=== PATIENT | female | born 1955 | race Caucasian/White ===

== ENCOUNTER → 2017-06-04 | Outpatient (CLI) | payer MEDICARE | END | disposition home or self-care (01) | LOC: GMAB 10:52 | PROVIDERS: ATTEND Family Medicine | DX: I10 Essential (primary) hypertension (principal) ==

== ENCOUNTER 2017-09-29 12:00 | Inpatient (IN) | payer MEDICARE ==
--- NOTE | 2017-09-29 12:11 | HP ---
SUPERVISING PHYSICIAN: Damien Rivera MD CHIEF COMPLAINT: Worsening shortness of breath, cough. HISTORY OF PRESENT ILLNESS: Ms. Perez is a 62-year-old, female patient of Dr. Hess's with a history of hypertension, multiple sclerosis and tobacco abuse of a pack a day with chronic obstructive pulmonary disease. She had been seen in the clinic last week and treated for an upper respiratory infection and started on a Z-Adryan. She notes that her symptoms have worsened over the last 5 days. Her cough has become more productive and has become purulent. She is short of breath at rest and actually in the clinic today, she was showing SPO2 of 83% on room air. On exam, Dr. Hess noticed that the patient was significantly worse clinically and then initial treatment course with expiratory and inspiratory wheezing, desaturations. Influenza test was completed in the clinic which was negative for both A and B. Chest x-ray, single view, per radiologic interpretation showed no significant areas of infiltrate or consolidation. The patient was given a breathing treatment in the clinic with minimal improvement in her respiratory effort and saturations again showing 83% on room air. Dr. Hess requested the patient be admitted having failed to respond to outpatient treatment plan in regards to the upper respiratory infection and initiated on further treatment and evaluation for concerns for worsening exacerbation of chronic obstructive pulmonary disease and possible early pneumonia. The patient was admitted in stable condition directly from Dr. Hess's office. PAST MEDICAL HISTORY: 1. Hypertension. 2. Multiple sclerosis. 3. Chronic obstructive pulmonary disease in a chronic smoker. 4. Tobacco abuse, nicotine addiction. PAST SURGICAL HISTORY: No surgeries listed. CURRENT MEDICATIONS: 1. Lisinopril/hydrochlorothiazide 20-25 mg 1 daily. 2. Gabapentin 300 mg b.i.d. 3. Paxil 20 mg daily. 4. Metoprolol succinate ER 50 mg daily. 5. Ritalin 20 mg t.i.d. 6. Potassium chloride 10 mEq b.i.d. 7. Ocrevus 300 mg per injection 1 infusion every 6 months. ALLERGIES: NO KNOWN DRUG ALLERGIES. FAMILY HISTORY: Noncontributory. SOCIAL HISTORY: The patient is retired and disabled secondary to multiple sclerosis. She lives with her in [place]. She is a current smoker approximately 1 pack a day. She denies any alcohol or illicit drug use. REVIEW OF SYSTEMS: CONSTITUTIONAL: Positive for subjective fever, but negative for chills, fatigue or unintentional weight loss. HEENT: Denies nasal congestion, sore throats, earaches. RESPIRATORY: Positive for worsening cough with purulent sputum and increasing weakness and shortness of breath. CARDIOVASCULAR: Denies chest pain or palpitations. Denies syncopal episodes. GASTROINTESTINAL: Denies nausea or vomiting, diarrhea, constipation or bowel habit changes. GENITOURINARY: The patient is incontinent and unable to control her bladder as well as sense she needs to go to the bathroom secondary to underlying multiple sclerosis. MUSCULOSKELETAL: History of multiple sclerosis. Wheelchair bound with paraplegia secondary to complications from multiple sclerosis. INTEGUMENTARY: Denies rashes, sores or abrasions. NEUROLOGIC: No noted headaches, vision changes, syncopal episodes or other neurological disturbances. PHYSICAL EXAMINATION: VITAL SIGNS: Temperature 98.6. Pulse 76. Blood pressure 116/75. Initial saturation 84% on room air, improving to 92% with nasal cannula at 2 liters at rest. Admission weight 65.5 kg. GENERAL: The patient is well-developed, well-nourished, no apparent distress. The patient is alert. HEENT: Tympanic membranes clear bilaterally. Oropharynx is pink, moist without any lesions. NECK: Supple, nontender with full range of motion. No jugular venous distention noted. CHEST: Lungs notable for rales towards bilateral bases with some rhonchi heard throughout with a diffuse expiratory wheeze. CARDIOVASCULAR: Regular rate and rhythm without any appreciable murmurs, gallops, or rubs. ABDOMEN: Soft, nontender. Positive bowel sounds. EXTREMITIES: Wheelchair bound with muscle wasting of the lower extremities. NEUROLOGIC: The patient is alert and oriented times three. Cranial nerves II- XII are grossly intact. Facial features are symmetrical. Extraocular movements are within normal limits. There is no nystagmus noted. Bilateral extremities show equal strength. Lower extremities are bilaterally flaccid secondary to multiple sclerosis. LABORATORY: Initial white count 8,300. She does have a left shift with hemoglobin 14.1, hematocrit 40.8, platelet count 215,000. Chemotherapy does show mildly low potassium of 3.1, carbon dioxide elevated at 32 with normal anion gap at 13, BUN 19, creatinine 1.02. Glucose 104, lactic acid 0.7. Total bilirubin slightly elevated at 1.4, calcium 9.6. Liver functions within normal limits. Urinalysis showed a small amount of blood, positive nitrites with 4 urobilinogen, small amount of leukocyte esterase. Microscopic showed 1 to 3 RBCs, 10 to 20 WBCs, 1 to 3 epithelial with 2+ amorphus material and 4+ bacteria , trace mucus from catheterized specimen. MICROBIOLOGY: Urine culture pending. Sputum culture pending. Blood cultures pending. Influenza A swab completed prior to admission from the clinic was negative for both A and B. RADIOLOGY: Single view chest performed at [facility] prior to admission reviewed per radiologic interpretation showed lungs clear. ASSESSMENT: 1. Acute exacerbation of chronic obstructive pulmonary disease having failed to respond to outpatient treatment with worsening acute bronchitis with concerns for developing bilateral pneumonia with the patient showing a low O2 saturation on room air requiring O2 supplementation along with hypercapnia. 2. Urinary tract infection with cultures pending. 3. Electrolyte imbalance with a mid hypokalemia requiring replacement. 4. Mild dehydration requiring initiation of IV fluids secondary to underlying bronchitis and possible pneumonia. 5. Chronic tobacco abuse in a patient with significant chronic obstructive pulmonary disease. 6. Hypertension. 7. Multiple sclerosis, followed by Dr. Rodriguez. PLAN: The patient will be directly admitted to the Medical/Surgical Floor from Dr. Hess's office for initiation of empiric antibiotic therapy to include Levaquin as she has failed to respond to outpatient management with a Z-Adryan. She will be on aggressive pulmonary hygiene with chest percussion therapy. We will start her on DuoNeb treatments q.i.d. and p.r.n. albuterol treatments as needed. She is not showing any distress and at this point requests that she not have any steroids, however, I did discuss with her that should she continue to show any significant wheezing, certainly we will need to address with some Solu-Medrol possibly, but at this point she is not in any significant distress and with no prominent wheezing, therefore, we will hold off on any steroids at the moment. We will await a sputum culture. In regards to the urinary tract infection, she is on Levaquin and we will await that culture to further target antibiotic therapy as appropriate. We will anticipate her length of stay to be 2 to 3 days until clinically stable. We will continue to monitor and treat appropriately. We will plan to repeat labs in the morning as well as chest x- ray. Once clinically stable and able to be discharged, she will need close clinical followup with her primary care provider, Dr. Hess. #[id number] [facility]
[2017-09-29] MEDS ORDERED: ACETAMINOPHEN 325 MG TAB PO PRN (12:26)
[2017-09-29] MEDS ORDERED: ALBUTEROL SULFATE 2.5 MG/3 ML VIAL NEB PRN (12:26)
[2017-09-29] MEDS ORDERED: SODIUM CHLORIDE 0.9% (FLUSH) 10 ML SYG IV PRN (12:26)
[2017-09-29] MEDS ORDERED: IV SET AND CAP CHANGE INJ INJ SCH (12:30)
[2017-09-29] MEDS: IPRATROPIUM/ALBUTEROL 3 ML VIAL INH SCH ×3 (14:40→20:11)
[2017-09-29] MEDS: levoFLOXacin 750MG IV 750 MG in PREMIX BAG 1 BAG IVPB SCH (15:08)
[2017-09-29] MEDS: KCL 20MEQ/0.45% NS 1,000 ML IVS PRN (16:43)
[2017-09-29] MEDS: SODIUM CHLORIDE 0.9% (FLUSH) 10 ML SYG IV SCH (21:00)
--- NOTE | 2017-09-29 21:35 | PCM.CORE ---
Physician DVT/VTE - Nurse DVT Assessment & Total Each Risk Factor Represents 2 Points: Age 60-74, Confined to bed >72 hours Each Risk Factor Represents 1 Point: Hx of smoking past year Each Risk Factor is 1 Point: Obesity (BMI >25), Serious Lung disease (pnemonia < 1month, COPD, emphysema,etc) DVT Assessment Score: 7 - 5 or more Very High Risk Treatments: Sequential Compression Device Pharmacological: Enoxaparin 40mg SQ Daily
[2017-09-29] MEDS ORDERED: NON-FORMULARY MEDICATION 1 EA MIS (Potassium Chloride [Potassium Chloride Er] 10 MEQ) PO SCH (21:45)
[2017-09-29] MEDS: GABAPENTIN 300 MG CAP PO SCH (21:58)
[2017-09-29] MEDS ORDERED: ENOXAPARIN SODIUM 40 MG/0.4 ML SYG SUBCU SCH (22:00)
[2017-09-29] MEDS: METHYLPHENIDATE HCL 20 MG PO SCH (22:18)
[2017-09-30] MEDS: KCL 20MEQ/0.45% NS 1,000 ML IVS PRN ×2 (05:17→19:30)
[2017-09-30] MEDS ORDERED: PANTOPRAZOLE SODIUM IV 40 MG VIAL IV SCH (06:30)
[2017-09-30] MEDS: IPRATROPIUM/ALBUTEROL 3 ML VIAL INH SCH ×4 (08:50→21:21)
[2017-09-30] MEDS ORDERED: METOPROLOL SUCCINATE XL 50 MG TAB PO SCH ×2 (09:00→21:00)
[2017-09-30] MEDS ORDERED: POTASSIUM CHLORIDE 10 MEQ TAB PO SCH (09:00)
[2017-09-30] MEDS ORDERED: hydroCHLOROthiazide 25 MG TAB PO SCH (09:00)
[2017-09-30] MEDS ORDERED: NON-FORMULARY MEDICATION 1 EA MIS (Lisinopril & Hydrochlorothiazi [Lisinopril/Hctz 20-25 M PO SCH (09:00)
[2017-09-30] MEDS: LISINOPRIL 10 MG TAB PO SCH (09:54)
[2017-09-30] MEDS: GABAPENTIN 300 MG CAP PO SCH ×2 (09:54→20:36)
--- NOTE | 2017-09-30 09:58 | RAD ---
EXAM DESCRIPTION: Chest,1 View CLINICAL HISTORY: 62 years Female, Pneumonia COMPARISON: None. IMPRESSION: The heart is enlarged, without failure. The thoracic aorta is tortuous and contains moderate calcific plaque. The lungs are hyperexpanded. Retrocardiac left basilar opacity which may represent atelectasis or pneumonia. Short interval follow-up to confirm resolution recommended. No large pleural effusion or pneumothorax. No acute osseous abnormality. Electronically signed by: Jeremy Farooq MD 09/30/2017 9:56 AM TELEVISION ENGINEER
[2017-09-30] MEDS: POTASSIUM CHLORIDE 10 MEQ TAB PO SCH ×2 (10:09→17:32)
[2017-09-30] MEDS: SODIUM CHLORIDE 0.9% (FLUSH) 10 ML SYG IV SCH ×2 (10:13→20:37)
[2017-09-30] MEDS: METHYLPHENIDATE HCL 20 MG PO SCH ×3 (10:25→20:37)
[2017-09-30] MEDS ORDERED: predniSONE 20 MG TAB PO ONE (11:52)
--- NOTE | 2017-09-30 13:18 | PN ---
DATE: 09/30/17 SUBJECTIVE: The patient is lying in the bed with head elevated. She states she is still having some moderate dyspnea on minimal exertion like turning around in the bed. She is coughing up some sputum and this will be sent to the lab for the sputum collection culture as well as gram stain. Appetite is fairly good. She has advanced multiple sclerosis which has resulted in significant loss of function of her lower extremities with her upper extremities working to a degree of function. OBJECTIVE: VITAL SIGNS: Afebrile. Pulse 77. Blood pressure 110/76. Pulse oximetry still only 90% on 3 liters, suggesting a fairly significant level of hypoxia. We will have respiratory therapy assist with determining the amount of oxygen that she will require after her discharge home. LUNGS: Some rhonchi which somewhat clears with clearing of sputum through coughing. HEART: Tones are somewhat distant, yet regular. ABDOMEN: Soft, no tenderness. EXTREMITIES: Lower extremities have diminished muscle tone, no significant edema. LABORATORY: Potassium 3.1. White count 6,900, hemoglobin 12.8. Urine culture showing gram negative danette, greater than 100,000 colony count with final results pending, hopefully by tomorrow. The patient currently is on a fluoroquinolone. Chest x-ray performed this morning reveals chronic obstructive pulmonary disease on the lung with a retrocardiac left basilar opacity suggesting atelectasis or pneumonia with followup suggested. ASSESSMENT: 1. Chronic obstructive pulmonary disease with an acute exacerbation having failed outpatient therapy, requiring pulmonary hygiene with bronchodilation as well as initiation of anti-inflammatory treatment. 2. Left lower lobe pneumonia with associated acute bronchitis, being treated with fluoroquinolones with followup suggested. 3. Hypoxia, requiring oxygen with her previously not being on oxygen at home. 4. Urinary tract infection with cultures pending, currently under treatment with fluoroquinolone. 5. Hypokalemia, persistent with supplementation to continue. 6. Mild dehydration with IV supplementation to continue. 7. Chronic tobacco abuse, having stopped about 2 weeks ago and encouraged to stay stopped. 8. History of hypertension. 9. History of multiple sclerosis with significant lower extremity disability precluding her ability to walk, being followed closely in neuro clinic by Dr. Rodriguez. PLAN: The patient will be continued on Levaquin having failed to respond to outpatient management with a Z-Adryan. Prednisone is added as well as some inhaled Decadron medication to assist with alveolar function. Respiratory therapy to assist in evaluating the need for oxygen and if she needs it at home , we will be able to acquire it before she is able to be discharged. Await urine culture in the morning. Sputum culture is now pending. Close followup necessary. [id number]
[2017-09-30] MEDS: levoFLOXacin 750MG IV 750 MG in PREMIX BAG 1 BAG IVPB SCH (15:10)
[2017-09-30] MEDS: DEXAMETHASONE INJ 2 MG, SODIUM CHLORIDE 0.9% NEB 3 ML NEB SCH ×4 (18:04→21:21)
[2017-09-30] MEDS ORDERED: SODIUM CHLORIDE 0.9% NEB 3 ML VIAL ONE (19:57)
[2017-09-30] MEDS ORDERED: DEXAMETHASONE INJ 4 MG/ML VIAL ONE (19:57)
[2017-09-30] MEDS ORDERED: PANTOPRAZOLE SODIUM TAB 40 MG PO ONE (20:06)
[2017-09-30] MEDS ORDERED: ENOXAPARIN SODIUM 40 MG/0.4 ML SYG SUBCU SCH (21:00)
[2017-09-30] MEDS ORDERED: PARoxetine HCL 20 MG TAB PO SCH (21:00)
[2017-10-01] MEDS ORDERED: PANTOPRAZOLE SODIUM TAB 40 MG PO SCH (06:30)
[2017-10-01] MEDS ORDERED: DEXAMETHASONE INJ 4 MG/ML VIAL ONE (07:53)
[2017-10-01] MEDS ORDERED: SODIUM CHLORIDE 0.9% NEB 3 ML VIAL ONE (07:53)
[2017-10-01] MEDS: IPRATROPIUM/ALBUTEROL 3 ML VIAL INH SCH ×2 (07:57→13:05)
[2017-10-01] MEDS: DEXAMETHASONE INJ 2 MG, SODIUM CHLORIDE 0.9% NEB 3 ML NEB SCH ×2 (08:00)
[2017-10-01] MEDS: KCL 20MEQ/0.45% NS 1,000 ML IVS PRN (08:32)
[2017-10-01] MEDS: POTASSIUM CHLORIDE 10 MEQ TAB PO SCH (08:32)
[2017-10-01] MEDS ORDERED: predniSONE 10 MG TAB PO SCH (09:00)
[2017-10-01] MEDS: METHYLPHENIDATE HCL 20 MG PO SCH ×2 (09:25→13:21)
[2017-10-01] MEDS: SODIUM CHLORIDE 0.9% (FLUSH) 10 ML SYG IV SCH (09:26)
[2017-10-01] MEDS: LISINOPRIL 10 MG TAB PO SCH (09:27)
[2017-10-01] MEDS: GABAPENTIN 300 MG CAP PO SCH (09:27)
[2017-10-01] MEDS: levoFLOXacin 750MG IV 750 MG in PREMIX BAG 1 BAG IVPB SCH (13:21)
--- NOTE | 2017-10-01 13:21 | DS ---
DISCHARGE DIAGNOSIS: 1. Chronic obstructive pulmonary disease with an acute exacerbation having failed outpatient therapy, requiring pulmonary hygiene with bronchodilation as well as short course of anti-inflammatory therapy. 2. Left lower lobe pneumonia with associated acute bronchitis, treated with fluoroquinolones with followup in clinic necessary. 3. Documented hypoxia, with pulse oximetry 87% on room air on the day of discharge, requiring portable as well as oxygen concentrator for use at home to be arranged. 4. Urinary tract infection with culture positive Klebsiella pneumoniae with treatment based upon sensitivities on Levaquin to be continued for an additional 5 days. 5. Hypokalemia, supplementation to continue and decision to hold on hydrochlorothiazide for a while and observe her blood pressure response. 6. Mild dehydration with IV supplementation to continue. 7. Chronic tobacco abuse, having stopped "2 weeks ago" and encouraged to stay stopped. 8. History of hypertension with followup suggested. 9. History of multiple sclerosis with significant lower extremity disability preventing her from walking and being able to get around the house without the significant help of her . She is followed closely in neuro clinic by Dr. Rodriguez. HISTORY OF PRESENT ILLNESS: This 62-year-old, white female was admitted to the hospital after having failed outpatient therapy for shortness of breath, upper respiratory infection, cough, symptoms worsening over the last 5 days. She is increasingly short of breath and shows a pulse oximetry of only 83% on room air. The patient had been started on therapy with azithromycin and Dr. Hess found her to be significantly worse clinically. Influenza A/B test was negative. Chest x-ray did reveal an infiltrate in the left base. The patient was admitted to the hospital for definitive pulmonary hygiene and bronchodilator therapy and to begin treatment to prevent it from worsening. LABORATORY: White count 6,300, hemoglobin stabilized at about 12.5. Chemistries showed initial potassium 3.1, up to 4 with supplementation. CO2 persisted in being elevated at 32. BUN improved to 13 from 19. Glucose 108. Bilirubin 1.4, albumin 3. Urinalysis positive nitrites with pyuria and bacteruria. Urine culture revealed Klebsiella pneumoniae, sensitive to the fluoroquinolones which she has been started on. Sputum culture showed normal vijay. Blood cultures were negative. RADIOLOGY: Chest x-ray does reveal an apparent retrocardiac left basilar infiltrate suggesting a pneumonia and followup necessary. HOSPITAL COURSE: The patient was feeling much improved on the morning of discharge and very much wishes to continue with outpatient management in the clinic. PLAN: The patient will be scheduled to see Dr. Hess in the clinic in the next week. Because of documented hypoxia on room air, the patient will be started on oxygen concentrated therapy at home as well as portable oxygen cylinders when mobile. She is to start off at 1 liter and to adjust to maintain pulse oximetry 91% to 93% only. Try to acquire a pulse oximetry monitor at [facility] or other suitable place for home use. See home medications which now include a short course of levofloxacin, prednisone for 12 days and albuterol medication nebulizers with a compressor to be sent home. She is to stay active. Breathing deeply. Return if not improving. Close followup on her multiple sclerosis is important to help maintain adequate respiratory function and general health. Observe closely. [facility][id number] [facility]
[2017-10-01 14:32] VITALS: BP 122/69; TEMP 96; O2SAT 89
== END 2017-10-01 15:55 | disposition home or self-care (01) | DRG 190 ==
LOC: MS 12:00
PROVIDERS: ADMIT Nurse Practitioner Family; ATTEND Emergency Medicine
DX: J44.1 Chronic obstructive pulmonary disease with (acute) exacerbation (principal); J18.9 Pneumonia, unspecified organism; N39.0 Urinary tract infection, site not specified; J20.9 Acute bronchitis, unspecified; J44.0 Chronic obstructive pulmonary disease with (acute) lower respiratory infection; I10 Essential (primary) hypertension; F17.210 Nicotine dependence, cigarettes, uncomplicated; G35 Multiple sclerosis; E87.6 Hypokalemia; E86.0 Dehydration; B96.1 Klebsiella pneumoniae [K. pneumoniae] as the cause of diseases classified elsewhere

== ENCOUNTER → 2018-07-27 | Outpatient (CLI) | payer MEDICARE | LOC: YCHH 08:42 | PROVIDERS: ATTEND Family Medicine | DX: G35 Multiple sclerosis (principal); I10 Essential (primary) hypertension; D64.9 Anemia, unspecified; E03.9 Hypothyroidism, unspecified ==

== ENCOUNTER → 2018-09-10 | Outpatient (CLI) | payer MEDICARE | LOC: YCHH 13:56 | PROVIDERS: ATTEND Psychiatry & Neurology Neurology | DX: G35 Multiple sclerosis (principal); Z79.899 Other long term (current) drug therapy ==

== ENCOUNTER → 2018-09-25 | Outpatient (CLI) | payer MEDICARE ==
--- NOTE | 2018-09-25 13:38 | MRI ---
EXAM DESCRIPTION: Brain w/wo Contrast: Magnetic Resonance Imaging. CLINICAL HISTORY: 63 years Female MULTIPLE SCLEROSIS. Patient and spouse say no improvement, but not declining as rapidly as before. COMPARISON: MRI scan of the brain without and with gadolinium IV contrast 02/13/2016. TECHNIQUE: Multiplanar, high-field MRI, multiple conventional sequences, without and with gadolinium IV contrast. No adverse reactions. Multiple axial diffusion sequences. FINDINGS: Bilateral multifocal symmetric hyperintense FLAIR and T2-weighted signal in the periventricular white matter , more than in the da silva-white matter junctions of the cerebral hemispheres. . A spherical lesion in the supraventricular left anterior parietal lobe is slightly enlarged on FLAIR axial 401, image 18 since the prior study. This lesion shows minimal diffusion restriction, similar to the prior study. A lesion in the centrum semiovale abutting the upper left frontal aspect of the lateral ventricle is slightly enlarged on FLAIR axial 401, image 17 since the prior study. Lesions abutting the occipital horn of the right lateral ventricle are less intense but more diffuse, on FLAIR axial images 12-16 since the prior study. Other lesions bilaterally are stable. These lesions are not associated with abnormal contrast enhancement, hemorrhage, or diffusion restriction normal signal in the bilateral Basal ganglia unremarkable. No hemorrhage, no cerebral edema, no mass-effect. Normal contrast enhancement. Normal signal in the brainstem and cerebellar hemispheres. No hemorrhage, no cerebral edema, no mass-effect. Normal contrast enhancement. Concordance of the diffusion and non-diffusion sequences with no evidence of acute or subacute infarction. Cortical sulci, ventricles, and other CSF spaces, and the subdural spaces are normally configured for patients age. No effacement or displacement. No midline shift. No extra-axial hemorrhage. Normal contrast enhancement. Normal flow signal void in the major vessels of the [place], and the venous sinuses. IACs are symmetric bilaterally. Normal signal in the bilateral mastoid air cells. No mass effect in the bilateral Cerebellopontine angles. Normal contrast enhancement. Pituitary gland occupies only the base of the sella. Normal contrast enhancement. Stable. Base of the cerebellar tonsils is above the foramen magnum. Normal enhancement of the optic nerve, but enhancement of the extraocular muscles again noted. No significant disease in the bilateral paranasal sinuses. The bony calvarium is intact. IMPRESSION: 1. Slight progression in size of some lesions in the left frontal and parietal lobes since the prior study. No contrast enhancement, hemorrhage. No new lesions are seen bilaterally. Small lesion in the supraventricular left anterior parietal lobe continues to show minimal diffusion restriction. No new regions of diffusion restriction, abnormal contrast enhancement, hemorrhage, or mass effect. Electronically signed by: Zion Clark MD 09/25/2018 1:37 PM [facility]
== END ==
LOC: MRI 09:00
PROVIDERS: ATTEND Psychiatry & Neurology Neurology
DX: G35 Multiple sclerosis (principal)

== ENCOUNTER 2019-09-14 11:38 | Emergency (ER) | payer MEDICARE ==
[2019-09-14] MEDS ORDERED: SODIUM CHLORIDE 0.9% (FLUSH) 10 ML SYG IV PRN (11:51)
[2019-09-14 12:12] VITALS: TEMP 97
--- NOTE | 2019-09-14 12:17 | CT ---
EXAM DESCRIPTION: Head CLINICAL HISTORY: right sided facial drooping COMPARISON: MRI brain September 25, 2018 TECHNIQUE: Noncontrast transaxial CT images of the head are obtained from base to vertex. This exam was performed according to our departmental dose-optimization program, which includes automated exposure control, adjustment of the mA and/or kV according to patient size and/or use of iterative reconstruction technique. FINDINGS: The midline structures are not displaced. Sulci are age-appropriate. There are areas of decreased attenuation in the periventricular white matter and the white matter of the centrum semiovale. A 4.2 cm area of decreased attenuation extending from the periventricular white matter to cortical surface with loss of normal da silva-white differentiation is seen in the left parietal lobe region. No mass effect on the lateral ventricle. No abnormal extra axial fluid collection is seen. Linear focus of increased attenuation measuring 11 mm in the location of the left M1 segment of the temporal lobe is seen. Bone windows show no evidence of depressed skull fracture. The visualized paranasal sinuses are unremarkable. IMPRESSION: 1. Age-appropriate atrophy with evidence of old small vessel ischemic type changes seen. 2. Abnormality in left parietal region suggests subacute area of ischemia in the left MCA distribution. Consider further evaluation with MRI imaging. 3. Hyperdense left MCA is seen raising suspicion for thrombosis or occlusion of the M1 segment of the left MCA. Electronically signed by: Ousmane Ortega MD 09/14/2019 12:15 PM [facility]
--- NOTE | 2019-09-14 12:18 | RAD ---
EXAM DESCRIPTION: Chest,1 View CLINICAL HISTORY: right sided facial drooping COMPARISON: None. IMPRESSION: Single AP portable upright view of the chest shows enlargement of the cardiac silhouette without pulmonary vascular congestion. Mild calcifications of the thoracic aorta are seen.. Lungs are normally aerated and clear. No obvious pleural effusion or pneumothorax is seen. Electronically signed by: Ousmane Otrega MD 09/14/2019 12:17 PM [facility]
[2019-09-14] MEDS ORDERED: ALTEPLASE 50 MG IVS ONE (12:31)
[2019-09-14] MEDS ORDERED: hydrALAZINE HCl 20 MG/ML VIAL ONE (12:44)
[2019-09-14] MEDS ORDERED: NITROPRUSSIDE SODIUM 25 MG/ML VIAL IVPB ONE (12:57)
[2019-09-14] MEDS ORDERED: DEXTROSE 5% 250ML 250 ML ONE (12:59)
[2019-09-14] MEDS ORDERED: hydrALAZINE HCl 20 MG/ML VIAL IV ONE ×2 (13:02→13:03)
--- NOTE | 2019-09-14 13:06 | ED.PDOC ---
History of Present Illness - General Chief Complaint: Neuro Symptoms/Deficits Stated Complaint: right sided facial drooping Time Seen by Provider: 09/14/19 12:12 Source: RN notes reviewed, Vital Signs reviewed, EMS notes reviewed, family - , daughter and son-in-law. Exam Limitations: clinical condition - Patient has an expressive and receptive aphasia. - History of Present Illness Initial Comments: Patient is a 64-year-old white female who presents from home with acute onset of weakness and decreased level of consciousness. Per the , this started at 9:30 in the morning. Patient normally can talk and is interactive and can use her upper extremities with mild difficulty. Patient has a history of MS and her lower extremities are exceptionally weak. At approximately 930 patient became unresponsive and became globally limp with a right facial droop. Patient is minimally responsive here which makes obtaining a solid and complete HPI and review of systems difficult. Of note patient has a forced gaze preference to the left. Severity: severe Improving Factors: nothing Worsening Factors: nothing Associated Symptoms: confusion, weakness Allergies/Adverse Reactions: Allergies No Known Drug Allergy Allergy (Verified 09/29/17 13:53) Home Medications: Ambulatory Orders Gabapentin 1,600 mg PO BID 09/29/17 Paroxetine HCl [Paxil] 20 mg PO BEDTIME 09/29/17 Albuterol Sulfate Nebs [Proventil Nebs] 2.5 mg INH TID #100 vial 10/01/17 Amlodipine Besylate 5 mg PO DAILY 09/14/19 Lisinopril & Hydrochlorothiazi [Lisinopril/Hydrochlorothi 20-25 mg] 1 tab PO DAILY 09/14/19 Methylphenidate HCl [Ritalin] 60 mg PO DAILY 09/14/19 Nebivolol HCl [Bystolic] 20 mg PO DAILY 09/14/19 Potassium Chloride [Potassium Chloride ER] 10 meq PO BID 09/14/19 Review of Systems - Review of Systems Constitutional: States: see HPI, weakness EENTM: States: see HPI Respiratory: States: see HPI Cardiology: States: see HPI Gastrointestinal/Abdominal: States: see HPI Genitourinary: States: see HPI Musculoskeletal: States: see HPI Skin: States: see HPI Neurological: States: see HPI, numbness, paresthesia, weakness, other - Expressive and receptive aphasia. Endocrine: States: see HPI Unable to Obtain Due To: clinical condition Past Medical History (General) - Patient Medical History Hx Seizures: No Hx Stroke: No Hx Asthma: No Hx of COPD: Yes Hx Congestive Heart Failure: No Hx Pacemaker: No Hx Hypertension: Yes Hx Diabetes: No Hx MRSA: No - Vaccination History Hx Influenza Vaccination: - unknown Hx Pneumococcal Vaccination: - unknown - Social History Hx Tobacco Use: Yes Hx Alcohol Use: No Hx Substance Use: No Hx Physical Abuse: No Hx Emotional Abuse: No Family Medical History - Family History Mother Living Status: Hx Family Asthma: No Hx Family Congestive Heart Failure: Yes Hx Family Hypertension: No Hx Family Stroke: No Hx Cardiac Disease: Yes Hx Family Diabetes: No Hx Family Cancer: No Hx Family;Other: Passed from Sepsis Physical Exam - Physical Exam General Appearance: Obvious distress, Well Developed, Well Groomed, Well Hydrated Eye Exam: bilateral abnormal EOM ENT Exam: normal ENT inspection, hearing grossly normal, other - Patient with a forced left gaze preference that is unable to be overcome. Patient with right facial droop. Neck: non-tender, trachea midline, other Respiratory: chest non-tender, lungs clear, normal breath sounds, no respiratory distress Cardiovascular/Chest: normal peripheral pulses, no edema, no gallop, no JVD, no murmur, bradycardia - Bradycardic into the low 40s. Patient is not on a beta- marcellus. Peripheral Pulses: radial,right: 2+, radial,left: 2+ Gastrointestinal/Abdominal: normal bowel sounds, non tender, soft Back Exam: no vertebral tenderness Extremities Exam: non-tender, other - Patient with dense right-sided hemiparesis. Lower extremities show no movement by the patient. Per the she has no sensation in her lower extremity secondary to MS. 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 Motor/Sensory: weak motor strength RUE, weak motor strength RLE, weak motor strength LLE Skin Exam: normal color, warm/dry Progress - Progress Progress: Differential diagnosis: CVA, TIA, medication reaction, overdose of medication among others. 09/14/19 13:11 Patient is densely hemiparetic with a left gaze preference and what appears to be neglect of her right side. I have discussed this patient with the on-call neurologist at [facility], Dr. Moyer, and she recommends transfer to a comprehensive stroke center and starting TPA. I have discussed transfer with Dr. Velásquez at [facility] in [place], there is stroke neurologist, and he agrees with my assessment and plan for TPA and recommends immediate transfer. Patient with elevated blood pressure with a systolic of 188. I have given hydralazine 20 mg IV and patient's blood pressure has come down to a systolic of 167. Patient is grossly bradycardic at 44 bpm. She is not on any beta-blockers as this may be secondary to her stroke. TPA was started appro ximately 3 and half hours after symptom onset. Drip has been initiated. Plan also to have patient on a nitroprusside drip to control blood pressure. Plan to fly patient to the [facility] stroke [facility] in [place]. I have discussed the risks and benefits of this treatment with the patient's family, her and her children as well as their spouses and they voiced understanding and agre ement with the plan of care. Sanchez Cherry M.D. #[id number] - Results/Orders Results/Orders: 09/14/19 11:51 IV Care:Saline Lock per Protoc QSHIFT Telemetry .ONCE Sodium Chloride 0.9% (Flush) [Saline Flush Syringe] 10 ml IV PRN PRN 09/14/19 11:52 EKG Assessment ONCE 09/14/19 12:00 EKG STAT 09/14/19 13:30 Nitroprusside Sodium 50 mg Sodium Chloride 0.9% 250Ml [NS 250ml] 250 ml IVPB PRN Laboratory Results - last 24 hr 09/14/19 09/14/19 09/14/19 12:10 12:10 12:10 WBC 7.9 RBC 5.72 H Hgb 16.5 H Hct 48.5 H MCV 84.8 MCH 28.8 MCHC 34.0 RDW 14.0 Plt Count 189 MPV 8.0 Absolute Neuts (auto) 5.60 Absolute Lymphs (auto) 1.30 Absolute Monos (auto) 0.80 Absolute Eos (auto) 0.10 Absolute Basos (auto) 0.10 Neutrophils % 71.2 Lymphocytes % 16.9 L Monocytes % 9.5 H Eosinophils % 1.6 Basophils % 0.8 PT 9.9 INR 1.00 PTT (SP) 23.8 Sodium 140 Potassium 4.1 Chloride 101 Carbon Dioxide 32 H Anion Gap 11.1 L BUN 24 H Creatinine 1.18 BUN/Creatinine Ratio 20.3 H POC Glucose Random Glucose 96 Serum Osmolality 283.3 Calcium 10.5 H Total Bilirubin 0.7 AST 41 ALT 74 H Alkaline Phosphatase 56 Creatine Kinase 22 L CK-MB (CK-2) 2.4 CK-MB (CK-2) % Not Reportable Troponin I 0.02 Serum Total Protein 6.2 L Albumin 3.5 Globulin 2.7 Albumin/Globulin Ratio 1.3 09/14/19 12:29 WBC RBC Hgb Hct MCV MCH MCHC RDW Plt Count MPV Absolute Neuts (auto) Absolute Lymphs (auto) Absolute Monos (auto) Absolute Eos (auto) Absolute Basos (auto) Neutrophils % Lymphocytes % Monocytes % Eosinophils % Basophils % PT INR PTT (SP) Sodium Potassium Chloride Carbon Dioxide Anion Gap BUN Creatinine BUN/Creatinine Ratio POC Glucose 64 L Random Glucose Serum Osmolality Calcium Total Bilirubin AST ALT Alkaline Phosphatase Creatine Kinase CK-MB (CK-2) CK-MB (CK-2) % Troponin I Serum Total Protein Albumin Globulin Albumin/Globulin Ratio EXAM DESCRIPTION: Head CT CLINICAL HISTORY: right sided facial drooping COMPARISON: MRI brain September 25, 2018 TECHNIQUE: Noncontrast transaxial CT images of the head are obtained from base to vertex. This exam was performed according to our departmental dose- optimization program, which includes automated exposure control, adjustment of the mA and/or kV according to patient size and/or use of iterative reconstruction technique. FINDINGS: The midline structures are not displaced. Sulci are age-appropriate. There are areas of decreased attenuation in the periventricular white matter and the white matter of the centrum semiovale. A 4.2 cm area of decreased attenuation extending from the periventricular white matter to cortical surface with loss of normal da silva-white differentiation is seen in the left parietal lobe region. No mass effect on the lateral ventricle. No abnormal extra axial fluid collection is seen. Linear focus of increased attenuation measuring 11 mm in the location of the left M1 segment of the temporal lobe is seen. Bone windows show no evidence of depressed skull fracture. The visualized paranasal sinuses are unremarkable. IMPRESSION: 1. Age-appropriate atrophy with evidence of old small vessel ischemic type changes seen. 2. Abnormality in left parietal region suggests subacute area of ischemia in the left MCA distribution. Consider further evaluation with MRI imaging. 3. Hyperdense left MCA is seen raising suspicion for thrombosis or occlusion of the M1 segment of the left MCA. Electronically signed by: Ousmane Ortega MD 09/14/2019 12:15 PM [employer] EXAM DESCRIPTION: Chest,1 View CLINICAL HISTORY: right sided facial drooping COMPARISON: None. IMPRESSION: Single AP portable upright view of the chest shows enlargement of the cardiac silhouette without pulmonary vascular congestion. Mild calcifications of the thoracic aorta are seen.. Lungs are normally aerated and clear. No obvious pleural effusion or pneumothorax is seen. Electronically signed by: Ousmane Ortega MD 09/14/2019 12:17 PM [employer] OPER[employer] - EKG/XRAY/CT CT Ordered: Yes Stroke Information - Onset of Symptoms Symptoms of Stroke: Aphasia, Weakness of limb, Right Hemiparesis, Abnormal vision Stroke Onset of Symptoms Date: 09/14/19 Stroke Onset of Symptoms Time: 09:30 Departure - Departure Clinical Impression: Bradycardia CVA (cerebral vascular accident) Qualifiers: CVA mechanism: occlusion Precerebral and cerebral artery: middle cerebral artery Laterality of affected vessel: left Qualified Code(s): I63.512 - Cerebral infarction due to unspecified occlusion or stenosis of left middle cerebral artery Altered mental status Qualifiers: Altered mental status type: coma Coma depth: Alyse coma 9-12 Coma timing: in the field (EMT or ambulance) Qualified Code(s): R40.2421 - Alyse coma scale score 9-12, in the field [EMT or ambulance] Time of Disposition: 13:18 Disposition: Discharge to Home or Self Care Condition: Serious Departure Forms: ED Discharge - Pt. Copy, Patient Portal Self Enrollment Referrals: WESLEY HUBER MD [Primary Care Provider] - 1-2 Weeks Home Medications: Ambulatory Orders Gabapentin 1,600 mg PO BID 09/29/17 Paroxetine HCl [Paxil] 20 mg PO BEDTIME 09/29/17 Albuterol Sulfate Nebs [Proventil Nebs] 2.5 mg INH TID #100 vial 10/01/17 Amlodipine Besylate 5 mg PO DAILY 09/14/19 Lisinopril & Hydrochlorothiazi [Lisinopril/Hydrochlorothi 20-25 mg] 1 tab PO DAILY 09/14/19 Methylphenidate HCl [Ritalin] 60 mg PO DAILY 09/14/19 Nebivolol HCl [Bystolic] 20 mg PO DAILY 09/14/19 Potassium Chloride [Potassium Chloride ER] 10 meq PO BID 09/14/19 Critical Care Note - Critical Care Note Total Time (mins): 60 Transfer to Outside Facility - Transfer Information Decision to Transfer Date: 09/14/19 Decision to Transfer Time: 12:30 Reason for Transfer: specialized care not available Accepting Facility: [facility]
[2019-09-14 13:28] VITALS: BP 167/76; O2SAT 95
[2019-09-14] MEDS ORDERED: NITROPRUSSIDE SODIUM 50 MG in SODIUM CHLORIDE 0.9% 250ML 250 ML IVPB SCH (13:30)
== END 2019-09-14 13:30 | disposition short-term general hospital (02) ==
LOC: ER 11:38
DX: I63.512 Cerebral infarction due to unspecified occlusion or stenosis of left middle cerebral artery (principal); R29.810 Facial weakness; R00.1 Bradycardia, unspecified; R41.82 Altered mental status, unspecified; R47.01 Aphasia; G81.91 Hemiplegia, unspecified affecting right dominant side; H53.9 Unspecified visual disturbance; R94.31 Abnormal electrocardiogram [ECG] [EKG]; G35 Multiple sclerosis; J44.9 Chronic obstructive pulmonary disease, unspecified; I10 Essential (primary) hypertension; Z87.891 Personal history of nicotine dependence; Z79.899 Other long term (current) drug therapy
CPT/HCPCS: 36415; 70450; 71045; 80053; 82550; 82553; 82948; 84484; 85025; 85610; 85730; 93005; J0360; J2997; J7060